=== PATIENT | female | born 1975 | race American Indian/Alaskan Native ===

== ENCOUNTER 2019-08-07 12:49 | Observation (INO) | payer OTHER ==
[2019-08-05 09:49] LABS: Basophils # (Auto) 0.1 K/mm3 (0.0-0.1); Basophils % (Auto) 1.3 % (0.0-1.8); Eosinophils # (Auto) 0.1 K/mm3 (0.0-0.4); Eosinophils % (Auto) 2.5 % (0.0-4.3); Hematocrit 34.8 % (30.3-42.9); Hemoglobin 11.6 gm/dl (10.1-14.3); Mean Corpuscular HGB Conc 33 % (30-34); Mean Corpuscular Volume 83 fl (79-97); Monocytes # (Auto) 0.4 K/mm3 (0.0-0.8); Monocytes % (Auto) 6.5 % (0.0-7.3); Platelet Count 265 K/mm3 (140-440); Red Cell Distribution Width 13.4 % (13.2-15.2)
[2019-08-05 10:06] LABS: BUN/Creatinine Ratio 12; Blood Urea Nitrogen 7 mg/dL (7-17); Hemolysis Index 6
--- NOTE | 2019-08-05 10:19 | Anesthesia Consultation ---
Anesthesia Consult and Med Hx Date of service: 08/07/19 - Airway Anesthetic Teeth Evaluation: Good (2 broken molars upper right and lower left) ROM Head & Neck: Adequate Mental/Hyoid Distance: Adequate Mallampati Class: Class II Intubation Access Assessment: Probably Good - Pulmonary Exam CTA: Yes - Cardiac Exam Cardiac Exam: RRR - Pre-Operative Health Status ASA Pre-Surgery Classification: ASA1 Proposed Anesthetic Plan: General - Pulmonary Hx Smoking: No Hx Respiratory Symptoms: No - Cardiovascular System Hx Hypertension: No Hx Heart Attack/AMI: No - Central Nervous System CVA: No - Gastrointestinal Hx Gastroesophageal Reflux Disease: No - Endocrine Hx Renal Disease: No Hx Liver Disease: No Hx Insulin Dependent Diabetes: No Hx Non-Insulin Dependent Diabetes: No Hx Thyroid Disease: Yes (s/p partial thyroidectomy; no meds) - Other Systems Hx Obesity: No - Additional Comments Anesthesia Medical History Comments: No hx anesthetic complications.
--- NOTE | 2019-08-06 08:30 | History and Physical Report ---
History of Present Illness Date of examination: 08/04/19 History of present illness: Patient has been reassessed/reevaluated. H&P has been reviewed. No interval changes. This is a 43 years old female who complains of abnormal periods, She complains of irregular menses. lack of menses, history of thyroid disease and history of fibroids. Patient denies mid-cycle spotting, history of ovarian cysts, history of PCOS, history of bleeding disorder, lightheadedness, fatigue and cramping. Menses started at age 16. Interval between menses is 28 days and > 30 days. Menstrual flow lasts 5 days and 7 days. Patient's work up has included pelvic ultrasound that revealed multiple myomas. Hormonal testing has shown that Ms. Matos is in premature menopause. Medical and surgical treatment options discussed Patient desires definitive treatment .Patient desires to retain future fertility. She desires myomectomy Her menop ause diagnosis andthe elimination of fertility has been explained to patient and her . Patient understands and desires to proceed beleiving that God may allow her to become . Vital Signs: Patient Profile: 43 Years Old Female LMP: 03/2019 Height: 68 inches Weight: 193 pounds BMI: 29.34 Menstrual History: LMP (date): 03/2019 Current Method of Contraception: None Date of Last Pap Smear: 04/01/2019 Past History : 2 Term Births: 2 Premature Births: 0 Living Children: 2 Para: 2 Mult. Births: 0 Prev : 1 Prev. attempt? success x1 Aborta: 0 Elect. Ab: 0 Spont. 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 Risk Factors: Smoked Tobacco Use: Never smoker Smokeless Tobacco Use: Never Passive smoke exposure: no Drug use: no HIV high-risk behavior: no Caffeine use: 0 drinks per day Alcohol use: no Exercise: no Seatbelt use: 100 % PAP Smear History: Date of Last PAP Smear: 04/01/2019 Review of Systems General Denies fever, chills, sweats, anorexia, fatigue, weakness, malaise, weight loss and sleep disorder. Complains of abnormal vaginal bleeding. Denies vaginal discharge, incontinence, dysuria, hematuria, urinary frequency, amenorrhea, menorrhagia, pelvic pain, genital sores, decreased libido, painful periods, painful sex, urinary urgency, hot flashes, vaginal dry ness, vaginal itching and vaginal odor. CV Denies chest pains, palpitations, syncope, dyspnea on exertion, orthopnea, PND and peripheral edema. Resp Denies cough, dyspnea at rest, excessive sputum, hemoptysis, wheezing and pleurisy. GI Denies nausea, vomiting, diarrhea, constipation, change in bowel habits, abdominal pain, melena, hematochezia, jaundice, gas/bloating, indigestion /heartburn, dysphagia and odynophagia. Breast Denies left breast lump, right breast lump, nipple discharge, bloody discharge from nipple, breast pain, abnormal mammogram and breast enlargement. Psych Denies depression, anxiety, irritability and mood swings. Past History Past Medical History: other (SEE HPI) Past Surgical History: Other (SEE HPI) Social history: (SEE HPI), full code, other Family history: other (SEE HPI) Medications and Allergies Allergies Allergy/AdvReac Type Severity Reaction Status Date / Time No Known Allergies Allergy Unverified 07/31/19 13:17 Home Medications Medication Instructions Recorded Confirmed Last Taken Type No Known Home Medications [No 07/31/19 07/31/19 Unknown History Reported Home Medications] Active Meds: Active Medications Celecoxib (Celebrex) 200 mg PO PREOP NR Stop: 08/07/19 23:00 Fentanyl (Sublimaze) 100 mcg IV ONCE PRN PRN Reason: sedation for nerve block Stop: 08/07/19 23:00 Gabapentin (Gabapentin) 600 mg PO PREOP NR Stop: 08/07/19 23:00 Cefazolin Sodium (Ancef/Sterile Water 2 Gm/20 Ml) 2 gm in 20 mls @ 80 mls/hr IV PREOP NR; Protocol Stop: 08/07/19 23:00 Lactated Ringer's (Lactated Ringers) 1,000 mls @ 100 mls/hr IV DIRECT GRADY Stop: 08/07/19 23:59 Magnesium Oxide (Mag-Ox) 400 mg PO PREOP GRADY Stop: 08/07/19 23:00 Midazolam HCl (Versed) 2 mg IV PREOP NR Stop: 08/07/19 23:00 Review of Systems Constitutional: other (SEE HPI) Exam - Physical Exam Narrative exam: HEENT: normocephalic, no lesions or deformities Skin no significant abnormal lesions or rashes Chest: respiratory effort normal, clear to auscultation Breasts: skin/areolae normal, no masses, no nipple discharge, no erythema/warmth/tenderness, and axillae normal. 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 Vulva/Vagina: No lesions, normal BUS, normal rugae Cervix: No lesions; no cervical motion tenderness Uterus: enlarged uterus 8 - 10 weeks size Adnexae: no masses or tenderness Rectovaginal: exam defered - Constitutional Vitals: Temp Pulse Resp BP Pulse Ox 98.3 F 80 20 129/63 100 08/05/19 09:00 08/05/19 09:00 08/05/19 09:00 08/05/19 09:00 08/05/19 09:00 Results - Labs CBC & Chem 7: 08/05/19 09:10 08/05/19 09:10 Labs: Abnormal lab results 08/05/19 08/05/19 Range/Units 09:10 09:10 Lymph % (Auto) 52.0 H (13.4-35.0) % Seg Neutrophils % 37.7 L (40.0-70.0) % Creatinine 0.6 L (0.7-1.2) mg/dL Assessment and Plan - Patient Problems (1) Intramural leiomyoma of uterus Status: Acute Plan to address problem: Diagnosis explained to patient . Questions answered. Discussed with patient various medical, surgical and radiological therapies common for treatment including expectant management, myomectomy hysterectomy and uterine artery embolization...Patient desires to retain future fertility. She desires myomectomy. Discussed risks and benefits of laparotomy and robotic assisted approaches Patient desires robotic assisted myomectomy Discuss the risks of the surgery including infection, bleeding possibly heavy enough to require a blood transfusion, possible damage to bowel, bladder or ureter. Patient understands that there is a possibility that a hysterectomy maybe indicated for severe bleeding not resolved with conservative measures.Patient advised the small risks of spreading of malignancy if morcellator is used during the surgery patient understands and approve of use if necessary. All her questions were answered. Patient understands (2) Premature menopause Status: Acute (3) Status post partial thyroidectomy Status: Chronic
--- NOTE | 2019-08-07 07:59 | Anesthesia Day of Surgery ---
Anesthesia Day of Surgery - Day of Surgery Patient Examined: Yes Patient H&P Reviewed: Yes Patient is NPO: Yes
[2019-08-07] MEDS: LACTATED RINGERS 1,000 ML IV SCH ×2 (08:15→16:55)
--- NOTE | 2019-08-07 12:16 | Operative Report ---
Operative Report Operative Report: Date of procedure: August 07, 2019 Pre-operative diagnosis: Symptomatic leiomyomata Post-operative diagnosis: Same plus pelvic adhesive disease Procedure name(s): Robotic assisted myomectomy with lysis of adhesions Surgeon: Terrence Montanez MD Anchor Tacker: Shlomo Delgado, certified orthotist practice manager Anesthesia: General EBL: Minimal Complications: None Findings: Patient with uterus approximately 14 weeks in size with multiple leiomyomata with 5 myomas been removed the largest is a fundal mid cavity myoma approximately 5 to 6 cm in diameter. Patient had multiple subserosal myomas removed both anteriorly posteriorly. At approximately 3 cm myoma posterior lower uterine segment and approximately 2-2-1/2 myoma anterior right near the fundus. Patient had normal appearing tubes and ovaries bilaterally. Patient had multiple omental adhesions to anterior abdominal wall and also adhesions of the anterior uterus and anterior abdominal wall thick in nature. Specimen(s): Leiomyomata Procedure: Patient taken operating room where general endotracheal anesthesia was induced difficulty. She was placed in dorsal lithotomy position prepped and draped in usual normal sterile fashion for robotic procedure. The a Chi catheter was placed in urinary bladder without difficulty speculum placed in the vagina. A medium V care uterine manipulator was placed without any difficulty. Then attention was switched to the patient's abdomen. Supra-umbilical incision was made with a knife. Spread with a hemostat. A 10-12 Trocar was placed in this incision while lifting out anterior abdominal wall under direct visualization. Intra-abdominal cavity was entered without any evidence of internal organ damage. Patient was insufflated approximately 3 and half liters of CO2 gas. Patient's pelvic findings noted above. The patient was perceived to be a candidate for robotic procedure. On either side of the midline trocar placement approximately at 8 cm the 8 mm robotic trocars was placed under direct visualization with no signs of internal organ damage. Anchor Tacker ports were placed on the right lower quadrant 2 fingerbreadths above the iliac crest 10-12 trocar. A third robotic port was made left lower quadrant approximately 2 cm above the iliac crest and trocar inserted under direct visualization without any evidence internal injury damage. A French Hand fascial closure procedure was placed under direct visualization of the camera both the supra umbilicus incision in the right lower quadrant incision. The patient was then placed in extreme Trendelenburg. At this time the da Ozzie robot was docked on the patient's left side and the normal fashion. The da Ozzie device was connected to the surgery ports inserted. At that time I my place under the operating burrell. The omental adhesions were then taken down sharply and bluntly revealing the thick anterior uterine adhesions to an abdominal wall these were taken down both with cautery and sharply with Metzenbaums scissors with no evidence of bowel or bladder involvement. The uterus was then successfully lysed from the anterior abdominal wall. Pitressin was injected underneath the visible myomas into the myometrium. A midline incision was made starting and anteriorly and then posteriorly. The anterior left fundal myomas and removed through this incision with grasping with the graspers and tenaculum and using the scissors and blunt dissection removing from the myometrium cutting through the capsule around the myoma. The same procedure was done on the posterior myomas both of these myomas approximately 1 to 2-1/2 cm in diameter. At this time the posterior right lower uterine segment myoma serosa was incised and myomas were removed in similar fashion, with the myoma bed being hemostatic. Further incisions into the fundus reach the large myoma which was grasped with a tenaculum and then also sharply and bluntly cutting through the myoma capsule was removed through this incision. It appears that there was an entrance into the endometrium. But incision with good hemostasis. The smaller myomas were removed through the psychiatric assistant port and right lower quadrant. Attention was then switched to the defect in the uterus. The uterine defects were then closed in layers using 0 V lock Vicryl sutures with care to reapproximate the endometrium without compromising the uterine cavity. The serosa was then reapproximated with a baseball stitch. The separate incision for the posterior lower uterine segment myoma was also closed with 0 Vicryl with good hemostasis. 2 small areas were the serosa myomas were removed was hemostatic with cautery. The uterus then copiously irrigated and found to be hemostatic. Vonnie was placed along the deep closures for post operative hemostasis. Interceed was placed along the uterine incisions covering the uterus to prevent postoperative adhesions. At this time the morcellator was placed through the right lower quadrant psychiatric assistant port. The 2 larger myomas were then morcellated without difficulty with minimal spillage of pieces of the myoma. Small pieces were also removed through the psychiatric assistant port. All instruments were removed. Patient had clear urine coming through a Chi which was removed. The trocar incisions were closed the larger ones in layers with 0 Vicryl and subcuticularly with 4-0 Monocryl. The smaller incisions were closed subcuticularly with 4-0 Monocryl. Patient tolerated procedure well was awakened in the operating room and come to recovery room in good condition
[~2019-08-07 12:49] MED LIST: BACTERIOSTATIC SODIUM CHLORIDE 0.9% 30 ML VIAL INFILTRATI ONE; BUPIVACAINE-EPINEPHRINE/PF 0.25%-1:200,000 (30 ML) VIAL INFILTRATI ONE; CELECOXIB 200 MG CAP PO NR; CITRIC ACID-SOD CITRATE 500 ML IV ONE; CITRIC ACID-SOD CITRATE SOLN 500 ML IV SOLN IV ONE; GABAPENTIN 300 MG CAP PO NR; GLYCOPYRROLATE 0.4 MG/2 ML INJ ONE; HYDROmorphone 1 MG/1 ML INJ IV PRN; HYDROmorphone 1 MG/1 ML INJ ONE; KETOROLAC 30 MG/1 ML INJ ONE; LACTATED RINGERS 1,000 ML ONE; LIDOCAINE MPF (2%) 20 MG/1 ML VIAL 5 ML ONE; MAGNESIUM OXIDE 400 MG TAB PO SCH; MIDAZOLAM 2 MG/2 ML INJ IV NR; NEOSTIGMINE 10MG/10 ML INJ MDV ONE; ONDANSETRON 4 MG/2 ML INJ ONE; ROCURONIUM 50 MG/5 ML INJ IV ONE; SODIUM CHLORIDE 0.9% 100 ML IVPB IV ONE; SODIUM CHLORIDE 0.9% 100 ML ONE; SODIUM CHLORIDE 0.9% IRR 1,500 ML BOTTLE IR ONE; SODIUM CHLORIDE 0.9% IRRIG SOLN 2000 ML IR ONE; SUCCINYLCHOLINE CHLORIDE 200 MG/10 ML INJ MDV ONE; VASOPRESSIN 20 UNIT/1 ML INJ IM ONE; VASOPRESSIN 20 UNIT/1 ML INJ ONE; ceFAZolin/Water 2 GM/20 ML 2 GM/20 ML SYRINGE IV NR; cloNIDine/PF 1,000 MCG/10 ML VIAL EP ONE; dexAMETHasone 4 MG/ML VIAL ONE; fentaNYL 100 MCG/2 ML INJ IV PRN; propofoL 200 MG/20 ML VIAL IV ONE
[2019-08-07] MEDS ORDERED: ONDANSETRON 4 MG/2 ML INJ IV PRN (12:56)
[2019-08-07] MEDS ORDERED: HYDROcodone/ACETAMINOPHEN 5-325 MG TAB PO PRN (12:56)
[2019-08-07] MEDS ORDERED: D5W/LACTATED RINGERS 1,000 ML IV SCH (13:00)
[2019-08-07] MEDS ORDERED: ceFAZolin/NS 1 GM/50 ML 1 GM/50 ML BAG IV SCH (16:00)
[2019-08-07] MEDS ORDERED: KETOROLAC 30 MG/1 ML INJ IV SCH (18:00)
--- NOTE | 2019-08-07 18:09 | Event Note ---
Date: 08/07/19 Day of surgery. Discuss operative findings with patient and questions answered. Patient without fever. Will ambulate in halls this evening. Good urine output. We will continue routine postoperative care. Patient tolerating regular diet.
--- NOTE | 2019-08-07 18:59 | Short Stay Summary ---
Short Stay Documentation Date of service: 08/07/19 - History Past Medical History: other (SEE HPI) Past Surgical History: Other (SEE HPI) Social history: (SEE HPI), full code, other - Allergies and Medications Current Medications: Allergies No Known Allergies Allergy (Unverified 07/31/19 13:17) Home Medications Medication Instructions Recorded Confirmed Last Taken Type Ibuprofen [Motrin 800 MG tab] 800 mg PO Q6H PRN #30 tablet 08/07/19 Unknown Rx oxyCODONE /ACETAMINOPHEN [Percocet 1 - 2 tab PO Q6HR PRN #20 tablet 08/07/19 Unknown Rx 5/325 mg] Active Medications Acetaminophen/Hydrocodone Bitart ([place] 5/325) 2 each PO Q6H PRN PRN Reason: Pain, Moderate (4-6) Last Admin: 08/07/19 16:52 Dose: 2 each Documented by: Docusate Sodium (Colace) 100 mg PO BID GRADY Dextrose/Lactated Ringer's (D5lr) 1,000 mls @ 125 mls/hr IV DIRECT GRADY Last Admin: 08/07/19 18:30 Dose: 125 mls/hr Documented by: Cefazolin Sodium (Ancef/Ns 1 Gm/50 Ml) 1 gm in 50 mls @ 100 mls/hr IV Q8H GRADY; Protocol Stop: 08/08/19 00:29 Last Admin: 08/07/19 16:52 Dose: 100 mls/hr Documented by: Ketorolac Tromethamine (Toradol) 30 mg IV Q6H GRADY Stop: 08/08/19 06:00 Last Admin: 08/07/19 18:30 Dose: 30 mg Documented by: Ondansetron HCl (Zofran) 4 mg IV Q8H PRN PRN Reason: Nausea And Vomiting - Physical exam General appearance: no acute distress HEENT: Atraumatic Lungs: Normal air movement Breasts: deferred Heart: Regular rate Gastrointestinal: normoactive bowel sounds, tenderness (Appropriate day of surgery), distended (Mildly secondary to pneumoperitoneum), other (Surgery incisions intact with Dermabond in place) Female Genitourinary: deferred Rectal Exam: deferred Extremities: no ischemia Neurological: Normal gait, Normal speech - Brief post op/procedure progress note Date of procedure: 08/07/19 (See dictated op note) - Hospital course Hospital course: Patient was admitted underwent the above him procedure without any complications. Patient was admitted and underwent above procedure without complications. Her post operative extended recovery observation course was benign she was afebrile throughout. Patient had no orthostatic symptoms. Patient was tolerating regular diet and voiding without difficulty at time of discharge. Patient incision was healing well without evidence of infection. Patient will be discharged with follow-up in office in 1-2 weeks for postop check - Disposition Condition at discharge: Stable Disposition: DC-01 TO HOME OR SELFCARE - Discharge Diagnoses (1) Intramural leiomyoma of uterus Status: Acute (2) Premature menopause Status: Acute (3) Status post partial thyroidectomy Status: Chronic Short Stay Discharge Plan Activity: advance as tolerated Diet: regular Wound: open to air Additional Instructions: Patient instructed no heavy lifting for 4 weeks. No intercourse for 8 weeks. Call office for fever, chills, nausea, vomiting or pain not controlled by pain medications. Ambulation is encouraged. Patient's call for heavy vaginal bleeding. Patient instructed to keep her scheduled post operative office appointment. Follow up with: PRIMARY CAREMD [Primary Care Provider] - 7 Days Forms: [facility] Discharge Summary Prescriptions: Ibuprofen [Motrin 800 MG tab] 800 mg PO Q6H PRN #30 tablet PRN Reason: Pain oxyCODONE /ACETAMINOPHEN [Percocet 5/325 mg] 1 - 2 tab PO Q6HR PRN #20 tablet PRN Reason: Pain, Moderate
--- NOTE | 2019-08-07 19:18 | Post Anesthesia Evaluation ---
- Post Anesthesia Evaluation Patient Participated: Yes Airway Patent: Yes Stable Respiratory Function: Yes Nausea/Vomiting: No Temp > 96.8F: Yes Pain Manageable: Yes Adequeate Hydration: Yes Anesthesia Complications: No
[2019-08-07] MEDS ORDERED: DOCUSATE SODIUM 100 MG CAP PO SCH (22:00)
[2019-08-08 02:25] VITALS: BP 116/77
== END 2019-08-07 20:20 | disposition home or self-care (01) ==
LOC: OR 12:49 → OB 12:50
PROVIDERS: ADMIT Obstetrics & Gynecology; ATTEND Obstetrics & Gynecology
DX: Z03.818 Encounter for observation for suspected exposure to other biological agents ruled out (principal); D25.1 Intramural leiomyoma of uterus; E28.319 Asymptomatic premature menopause; E89.0 Postprocedural hypothyroidism
CPT/HCPCS: 36415; 58546; 64450; 80048; 84703; 85025; 86850; 86900; 86901; 88305; 96365; 96372; 96375; A4217; C1765; C1782; G0378; J0330; J0690; J0735; J1100; J1170; J1885; J2250; J2405; J2704; J2710; J3010; J7120; J7121; S2900; U0003